=== PATIENT | male | born 1945 | race African-American/Black ===

== ENCOUNTER 2019-11-19 02:35 | Inpatient (IN) | payer OTHER ==
[~2019-11-19] VITALS: Ht 182.9 cm; Wt 99.8 kg
--- NOTE | 2019-11-19 02:36 | NUR ---
BIB EMS C/O SOB WITH AUDIBLE WHEEZING X1 HR RETAIL BRANCH MANAGER. HHN TX GIVEN BY EMS O2SAT 95-98% POST HHN TX PER EMS REPORT, PT TO BED 5, AWAKE, ALERT, SPEAKING IN FULL SENTENCES, PLACED ON MONITOR, AWIATING ER PROVIDER DENZEL
[2019-11-19] MEDS ORDERED: ALBUTEROL FS 2.5 MG/0.5 ML VIAL.NEB ONE (02:53)
[2019-11-19] MEDS ORDERED: IPRATROPIUM NEB FS 0.5 MG/2.5 ML AMPUL.NEB ONE (02:53)
[2019-11-19] MEDS ORDERED: DILTIAZEM HCL 50 MG IV ONE (03:00)
[2019-11-19] MEDS ORDERED: DILTIAZEM HCL 50 MG IV IV ONE (03:00)
[2019-11-19] MEDS ORDERED: IPRATROPIUM NEB FS 0.5 MG/2.5 ML AMPUL.NEB NEB ONE (03:00)
[2019-11-19] MEDS ORDERED: ALBUTEROL FS 2.5 MG/0.5 ML VIAL.NEB NEB ONE (03:00)
[2019-11-19 03:14] LABS: BASOPHILS # (AUTO) 0.1 /CMM (0.0-0.2); BASOPHILS % (AUTO) 1.1 % (0.0-2.0); EOSINOPHILS % (AUTO) 2.9 % (0.0-6.0); HEMATOCRIT 41 % (39-51); HEMOGLOBIN 13.4 g/dL (13.5-17.5); LYMPHOCYTES # (AUTO) 1.5 /CMM (0.8-4.8); LYMPHOCYTES % (AUTO) 16.6 % (20.0-44.0); MEAN CORPUSCULAR HGB CONC 32 g/dl (31.0-36.0); MEAN CORPUSCULAR VOLUME 96 fL (80-96); MONOCYTES # (AUTO) 0.7 /CMM (0.1-1.30); MONOCYTES % (AUTO) 7.8 % (2.0-12.0); NEUTROPHILS # (AUTO) 6.3 /CMM (1.8-8.9); NEUTROPHILS % (AUTO) 71.6 % (43.0-81.0); PLATELET COUNT (AUTO) 260 /CMM (150-450); WHITE BLOOD COUNT (AUTO) 8.8 K/uL (4.3-11.0)
[2019-11-19 03:25] LABS: ALANINE AMINOTRANSFERASE 58 U/L (12-78); ALBUMIN 2.9 g/dL (3.4-5.0); ALKALINE PHOSPHATASE 166 U/L (46-116); ASPARTATE AMINOTRANSFERASE 33 U/L (15-37); B-TYPE NATRIURETIC PEPTIDE 6309 PG/ML (0-125); BILIRUBIN,DIRECT 0.2 mg/dL (0.0-0.2); BILIRUBIN,TOTAL 0.4 mg/dL (0.2-1.0); CALCIUM, SERUM 9.8 mg/dL (8.5-10.1); CARBON DIOXIDE 29 mmol/L (21-32); CHLORIDE 100 mmol/L (98-107); CREATININE 1.7 mg/dL (0.6-1.3); GLUCOSE 143 mg/dL (74-106); POTASSIUM 4.3 mmol/L (3.5-5.1); SODIUM SERUM 138 mmol/L (136-145); TOTAL PROTEIN, SERUM 8.3 g/dL (6.4-8.2); UREA NITROGEN, BLOOD 24 mg/dL (7-18)
[2019-11-19 03:36] LABS: BAND % (MANUAL) 2 % (0.0-5.0); LYMPHOCYTES % (MANUAL) 22 % (16-48); MONOCYTES % (MANUAL) 8 % (0-11.0); NEUTROPHILS % (MANUAL) 68 (42-76)
[2019-11-19] MEDS ORDERED: IPRA0.2S49 NEB (04:59)
[2019-11-19] MEDS ORDERED: SITA50TA PO (04:59)
[2019-11-19] MEDS ORDERED: OMEP1PAC5 PO (04:59)
[2019-11-19] MEDS ORDERED: METO50TA16 PO (04:59)
[2019-11-19] MEDS ORDERED: LOSA50TA39 PO (04:59)
[2019-11-19] MEDS ORDERED: GABA600T12 PO (04:59)
[2019-11-19] MEDS ORDERED: METH5TAB6 PO (04:59)
[2019-11-19] MEDS ORDERED: RIVA10TA PO (04:59)
[2019-11-19] MEDS ORDERED: OMEG-167 PO (04:59)
--- NOTE | 2019-11-19 05:00 | NUR ---
DR. HACKETT ON THE PHONE WITH DR STORM
[2019-11-19] MEDS ORDERED: DIVA250T4 PO (05:08)
--- NOTE | 2019-11-19 05:45 | NUR ---
REPORT GIVEN TO SHAUN LANDEROS FOR ALAINA; PT WILL BE TRANSPORTED TO 3RD FLOOR
--- NOTE | 2019-11-19 05:55 | NUR ---
MOTOR ANALYST ADMITTING NOTES RECEIVED PT FROM ER VIA LIA. PT A/O X3 AND ABLE TO MAKE NEEDS KNOWN. PT ON 2L VIA [place]. NO COMPLAINTS OF PAIN AT THIS TIME. PT NOTED WITH RAC #20G PATENT AND INTACT AND SL. ORIENTED PT TO STAFF AND ROOM. SAFETY MEASURES IN PLACE WITH BED IN LOWEST LOCKED POSITION WITH SIDE RAILS UP X2. CALL LIGHT WITHIN REACH. WILL CONTINUE TO MONITOR.
--- NOTE | 2019-11-19 05:58 | NUR ---
TRANSPORTED TO 3RD FLOOR VIA ACLS PROTOCOL
[2019-11-19] MEDS ORDERED: IPRATROPIUM NEB FS 0.5 MG/2.5 ML AMPUL.NEB NEB PRN (06:30)
[2019-11-19] MEDS ORDERED: ALBUTEROL HALF STRENGTH 1.25 MG/3 ML VIAL.NEB NEB PRN (06:30)
[2019-11-19] MEDS ORDERED: ACETAMINOPHEN 325 MG TABLET PO PRN (06:30)
--- NOTE | 2019-11-19 07:00 | NUR ---
BOOKS SALESPERSON NOTES PT IN BED AWAKE AND ABLE TO MAKE NEEDS KNOWN. PT A/O X3 AND ABLE TO MAKE NEEDS KNOWN. PT ON 2L VIA NC. NO COMPLAINTS OF PAIN AT THIS TIME. PT NOTED WITH RAC #20G PATENT AND INTACT AND SL. SAFETY MEASURES IN PLACE WITH BED IN LOWEST LOCKED POSITION WITH SIDE RAILS UP X2. CALL LIGHT WITHIN REACH. WILL ENDORSE TO ONCOMING NURSE FOR ALAINA.
[2019-11-19 07:05] VITALS: BP 145/88
[2019-11-19 07:12] LABS: BASOPHILS % (AUTO) 0.5 % (0.0-2.0); EOSINOPHILS % (AUTO) 1.2 % (0.0-6.0); HEMATOCRIT 41 % (39-51); LYMPHOCYTES # (AUTO) 1.3 /CMM (0.8-4.8); LYMPHOCYTES % (AUTO) 15.5 % (20.0-44.0); MEAN CORPUSCULAR HGB CONC 32 g/dl (31.0-36.0); MEAN CORPUSCULAR VOLUME 98 fL (80-96); MONOCYTES # (AUTO) 0.7 /CMM (0.1-1.30); MONOCYTES % (AUTO) 8.7 % (2.0-12.0); NEUTROPHILS % (AUTO) 74.1 % (43.0-81.0); PLATELET COUNT (AUTO) 241 /CMM (150-450); RED BLOOD CELL COUNT(AUTO) 4.18 MIL/uL (4.5-6.0); WHITE BLOOD COUNT (AUTO) 8.1 K/uL (4.3-11.0)
[2019-11-19] MEDS ORDERED: METOPROLOL TARTRATE 50 MG TABLET PO SCH ×2 (07:30→09:00)
--- NOTE | 2019-11-19 07:45 | NUR ---
PRESSER FIRST OPENING NOTES RECEIVED PATIENT IN BED, AWAKE, A/O X3. PATIENT IS ON OXYGEN THERAPY AT 2 LPM VIA NASAL CANULA; BREATHING IS EVEN WITH SOB ON AND OFF (PER PATIENT). TELE MONITOR WITH A CURRENT READING OF UNCONTROLLED A-FIB WITH PVCs 108 BPM. PATIENT COMPLAINING OF MILD NECK PAIN STATING IT IS THE RESULT OF COVID-19 (HISTORY OF COVID-19). RAC IV ACCESS G # 20 PRESENT AND INTACT. SAFETY PRECAUTIONS IN PLACE; BED IN LOW POSITION AND LOCKED, RAILS UP X2, CALL LIGHT WITHIN REACH. WILL CONTINUE TO MONITOR PATIENT.
[2019-11-19 07:46] LABS: CALCIUM, SERUM 9.6 mg/dL (8.5-10.1); CARBON DIOXIDE 24 mmol/L (21-32); CHLORIDE 103 mmol/L (98-107); CREATININE 1.4 mg/dL (0.6-1.3); GLUCOSE 128 mg/dL (74-106); POTASSIUM 4.3 mmol/L (3.5-5.1); SODIUM SERUM 137 mmol/L (136-145); UREA NITROGEN, BLOOD 24 mg/dL (7-18)
[2019-11-19 08:00] VITALS: BP 163/100
[2019-11-19] MEDS: LEVOFLOXACIN 500 MG /D5W 100ML 500 MG in PREMIX 1 EA IV SCH (08:38)
[2019-11-19] MEDS: DIVALPROEX SODIUM 250 MG TABLET.DR PO SCH ×2 (09:33→16:50)
[2019-11-19] MEDS: DILTIAZEM HCL CD 240 MG PO SCH (09:34)
[2019-11-19] MEDS: RIVAROXABAN 10 MG TABLET PO SCH (09:35)
--- NOTE | 2019-11-19 09:41 | NUR ---
HAND TRIMMER NOTES PATIENT A/O X3, OXYGENATING AT 99% ON 2 LPM BUT LOOKS SORT OF BREATH. PER PATIENT HE IS BREATHING OK AND IS SLEEPY. WILL CONTINUE TO MONITOR PATIENT.
[2019-11-19] MEDS: METHIMAZOLE (5MG) 5 MG TABLET PO SCH (10:59)
[2019-11-19] MEDS: PANTOPRAZOLE 40 MG TABLET.DR PO SCH (10:59)
[2019-11-19] MEDS: LINAGLIPTIN 5 MG TABLET PO SCH (10:59)
[2019-11-19] MEDS: FUROSEMIDE 40 MG/4 ML VIAL IV SCH ×3 (10:59→17:44)
[2019-11-19] MEDS: GABAPENTIN 300 MG CAPSULE PO SCH ×3 (11:00→16:50)
[2019-11-19 12:00] VITALS: BP 165/70
[2019-11-19] MEDS: BLOOD SUGAR DIAGNOSTIC 1 EACH STRIP VI SCH ×3 (12:21→21:22)
[2019-11-19] MEDS: methylPREDNISolone SOD SUCC 40 MG/ML VIAL IV SCH ×2 (12:26→16:50)
[2019-11-19] MEDS ORDERED: DEXTROSE 50%-WATER 50 ML DISP.SYRIN IV PRN (12:30)
[2019-11-19 12:54] LABS: PHOSPHORUS 3.6 mg/dL (2.5-4.9)
[2019-11-19 12:59] LABS: IRON, SERUM 53 ug/dl (50-175); TOTAL IRON BINDING CAPACITY 188 ug/dl (250-450)
[2019-11-19 13:05] LABS: THYROID STIMULATING HORMONE 5.314 uIU/mL (0.358-3.74)
[2019-11-19 13:13] LABS: THYROID STIMULATING HORMONE 5.314 uIU/mL (0.358-3.74)
--- NOTE | 2019-11-19 15:18 | NUR ---
COURT COMMISSIONER NOTES DVT PUMPS APPLIED AND WORKING. PATIENT RESTING COMFORTABLY.
[2019-11-19 16:00] VITALS: BP 108/62
[2019-11-19] MEDS: METOPROLOL TARTRATE 50 MG TABLET PO SCH (16:47)
--- NOTE | 2019-11-19 16:47 | NUR ---
BELLING MACHINE OPERATOR NOTES 1700 METOPROLOL NON-ADMINISTERED. BP BORDERLINE 108/62 HR 61 PLUS HAS LASIX SCHEDULED AT 1700 WELL.
[2019-11-19] MEDS: INSULIN REGULAR, HUMAN 100 UNIT/ML 3 ML VIAL SQ PRN (17:22)
--- NOTE | 2019-11-19 18:29 | NUR ---
AREA INTELLIGENCE TECHNICIAN CLOSING NOTES PATIENT IN BED, AWAKE, A/O X3 AND WATCHING TV. PATIENT IS ON OXYGEN THERAPY AT 2 LPM VIA NASAL CANULA; BREATHING IS EVEN AT THIS TIME. TELE MONITOR WITH A CURRENT READING OF UNCONTROLLED A-FIB WITH PVCs 74 BPM. NO COMPLAINS OF PAIN AT THIS TIME. RAC IV ACCESS G # 20 PRESENT AND INTACT. ALL NEEDS ATTENDED TO THROUGHOUT THE DAY. SAFETY PRECAUTIONS IN PLACE; BED IN LOW POSITION AND LOCKED, RAILS UP X2, CALL LIGHT WITHIN REACH. WILL ENDORSE TO TRAIN CALLER NURSE.
--- NOTE | 2019-11-19 19:28 | NUR ---
MANAGER CLINICAL RESEARCH RECEIVE PT IN BED PATIENT A/O X 3, ASLEEP AND EASILY AWAKEN, STABLE NOT IN DISTRESS. WILL CONTINUE TO MONITOR
[2019-11-19 20:00] VITALS: BP 118/65
[2019-11-19] MEDS: LOSARTAN POTASSIUM 50 MG TABLET PO SCH (21:11)
[2019-11-19] MEDS: *INSULIN REGULAR(HUMULIN R)HUM 100 UNIT/ML VIAL SQ PRN (21:27)
[2019-11-20] VITALS: BP 130/76
--- NOTE | 2019-11-20 01:00 | NUR ---
PT CALM AND SLEEPING AT THIS TIME.
[2019-11-20 04:00] VITALS: BP 141/78
--- NOTE | 2019-11-20 05:49 | NUR ---
MS RN PT STABLE ON 3LPM VIA NC 02 SAT 95% NO SOB, AM CARE RENDERED, NO S/S OF DISTRESS, NEEDS ATTENDED AND ANTICIPATED, KEPT CLEAN, DRY AND COMFORTABLE. AM CARE RENDERED, NO C/O OF PAIN, ASSISTED REPOSITION EVERY 2 HOURS. SAFETY MEASURES AT ALL TIMES. WILL ENDORSE NEXT SHIFT POC. Addendum: 11/20/19 at 0556 by MESERET MILLER RN A-NIMA 88'S HR ON CARDIAC MONITORING
[2019-11-20] MEDS: BLOOD SUGAR DIAGNOSTIC 1 EACH STRIP VI SCH ×4 (06:09→22:24)
[2019-11-20] MEDS: INSULIN REGULAR, HUMAN 100 UNIT/ML 3 ML VIAL SQ PRN (06:12)
--- NOTE | 2019-11-20 06:28 | NUR ---
CUSTOMER SERVICE RECEPTIONIST 87 HR A-FIB CONTROLLED ON CARDIAC MONITORING.
[2019-11-20 06:44] LABS: BASOPHILS % (AUTO) 0.1 % (0.0-2.0); HEMATOCRIT 41 % (39-51); LYMPHOCYTES # (AUTO) 0.7 /CMM (0.8-4.8); LYMPHOCYTES % (AUTO) 7.4 % (20.0-44.0); MEAN CORPUSCULAR HGB CONC 32 g/dl (31.0-36.0); MEAN CORPUSCULAR VOLUME 98 fL (80-96); MONOCYTES # (AUTO) 0.2 /CMM (0.1-1.30); MONOCYTES % (AUTO) 2.3 % (2.0-12.0); NEUTROPHILS # (AUTO) 8.7 /CMM (1.8-8.9); NEUTROPHILS % (AUTO) 90.2 % (43.0-81.0); PLATELET COUNT (AUTO) 253 /CMM (150-450); RED BLOOD CELL COUNT(AUTO) 4.18 MIL/uL (4.5-6.0); WHITE BLOOD COUNT (AUTO) 9.7 K/uL (4.3-11.0)
--- NOTE | 2019-11-20 07:15 | NUR ---
rn notes patient received on 2L nasal cannula, no sob noted, patient denies pain at this time. a/o x3, R AC 20, bed at the lowest setting, call light within reach, side rails up x2. Tele monitor on, a-fib controlled.
[2019-11-20 07:18] LABS: ALANINE AMINOTRANSFERASE 46 U/L (12-78); ALBUMIN 2.6 g/dL (3.4-5.0); ALKALINE PHOSPHATASE 141 U/L (46-116); ASPARTATE AMINOTRANSFERASE 17 U/L (15-37); BILIRUBIN,TOTAL 0.5 mg/dL (0.2-1.0); CALCIUM, SERUM 9.8 mg/dL (8.5-10.1); CARBON DIOXIDE 27 mmol/L (21-32); CHLORIDE 99 mmol/L (98-107); CREATININE 1.8 mg/dL (0.6-1.3); GLUCOSE 222 mg/dL (74-106); MAGNESIUM 1.9 mg/dL (1.8-2.4); PHOSPHORUS 3.6 mg/dL (2.5-4.9); POTASSIUM 4.7 mmol/L (3.5-5.1); SODIUM SERUM 136 mmol/L (136-145); UREA NITROGEN, BLOOD 39 mg/dL (7-18)
[2019-11-20] MEDS: IPRATROPIUM NEB FS 0.5 MG/2.5 ML AMPUL.NEB NEB SCH ×2 (07:30→20:08)
[2019-11-20] MEDS: LEVOFLOXACIN 500 MG /D5W 100ML 500 MG in PREMIX 1 EA IV SCH (07:45)
[2019-11-20 08:04] VITALS: BP 147/88
[2019-11-20] MEDS: DIVALPROEX SODIUM 250 MG TABLET.DR PO SCH ×2 (08:14→16:28)
[2019-11-20] MEDS: PANTOPRAZOLE 40 MG TABLET.DR PO SCH (08:14)
[2019-11-20] MEDS: GABAPENTIN 300 MG CAPSULE PO SCH ×3 (08:14→16:29)
[2019-11-20] MEDS: METOPROLOL TARTRATE 50 MG TABLET PO SCH ×2 (08:15→16:29)
[2019-11-20] MEDS: LINAGLIPTIN 5 MG TABLET PO SCH (08:16)
[2019-11-20] MEDS: RIVAROXABAN 10 MG TABLET PO SCH (08:16)
[2019-11-20] MEDS: METHIMAZOLE (5MG) 5 MG TABLET PO SCH (08:19)
[2019-11-20] MEDS: DILTIAZEM HCL CD 240 MG PO SCH (08:20)
[2019-11-20] MEDS: methylPREDNISolone SOD SUCC 40 MG/ML VIAL IV SCH ×3 (08:26→16:31)
--- NOTE | 2019-11-20 08:26 | NUR ---
rn notes new solumedrol dose not given due to the old dose being given already
[2019-11-20 08:40] LABS: ABG BASE EXCESS 0.3 mmol/L; ABG OXYGEN SATURATION 97.1 % (92.0-98.5); ABG PCO2 41.8 mmHg (35.0-45.0); ABG PH 7.398 (7.350-7.450); ABG PO2 91.4 mmHg (75.0-100.0); AaDO2 58.9 mmHg; COHb 0.7 % (0.5-1.5); MetHb 0.1 % (0.0-1.5); O2Hb 96.3 % (94.0-97.0); SITE, ABG Right Radial; VENT MODE, BG 2L NC
[2019-11-20 12:00] VITALS: BP 143/67
[2019-11-20] MEDS: DIGOXIN 0.25 MG TABLET PO SCH (12:12)
[2019-11-20] MEDS: *INSULIN REGULAR(HUMULIN R)HUM 100 UNIT/ML VIAL SQ PRN ×3 (12:13→22:26)
[2019-11-20 16:00] VITALS: BP 128/74
--- NOTE | 2019-11-20 17:55 | NUR ---
rn notes patient remains on 2L nasal cannula, no sob noted, patient shows no s/s of pain at this time. R ac 20 present. BS checked and insulin coverage given. Plan is to dc patient somewhere other than [facility], since patient is refusing to go back there. bed at the lowest setting, call light within reach, side rails up x2.
--- NOTE | 2019-11-20 19:10 | NUR ---
MS RN NOTES RECEIVED PT IN BED AWAKE AND ABLE TO MAKE NEEDS KNOWN. PT A/O X3. RESPIRATIONS EVEN AND UNLABORED WITH NO S/S OF ACUTE DISTRESS OR SOB NOTED. PT ON 2L 02 VIA NC. NO COMPLAINTS OF PAIN AT THIS TIME. SAFETY MEASURES IN PLACE WITH BED IN LOWEST LOCKED POSITION WITH SIDE RAILS UP X2. CALL LIGHT WITHIN REACH. WILL CONTINUE TO MONITOR.
--- NOTE | 2019-11-20 20:00 | NUR ---
MS RN NOTES PT REFUSED PHOTOS AT THIS TIME. WILL CONTINUE TO MONITOR.
[2019-11-20 20:22] VITALS: BP 128/76
[2019-11-20] MEDS: LOSARTAN POTASSIUM 50 MG TABLET PO SCH (22:24)
[2019-11-21] MEDS: INSULIN REGULAR, HUMAN 100 UNIT/ML 3 ML VIAL SQ PRN ×3 (06:35→17:14)
[2019-11-21] MEDS: BLOOD SUGAR DIAGNOSTIC 1 EACH STRIP VI SCH ×4 (06:35→21:07)
[2019-11-21 06:47] LABS: BASOPHILS % (AUTO) 0.1 % (0.0-2.0); HEMATOCRIT 40 % (39-51); HEMOGLOBIN 12.9 g/dL (13.5-17.5); LYMPHOCYTES # (AUTO) 0.7 /CMM (0.8-4.8); LYMPHOCYTES % (AUTO) 4.5 % (20.0-44.0); MEAN CORPUSCULAR HGB CONC 32 g/dl (31.0-36.0); MEAN CORPUSCULAR VOLUME 96 fL (80-96); MONOCYTES # (AUTO) 0.5 /CMM (0.1-1.30); MONOCYTES % (AUTO) 3.2 % (2.0-12.0); NEUTROPHILS # (AUTO) 13.6 /CMM (1.8-8.9); NEUTROPHILS % (AUTO) 92.2 % (43.0-81.0); PLATELET COUNT (AUTO) 263 /CMM (150-450); RED BLOOD CELL COUNT(AUTO) 4.17 MIL/uL (4.5-6.0); WHITE BLOOD COUNT (AUTO) 14.8 K/uL (4.3-11.0)
[2019-11-21 06:53] LABS: CALCIUM, SERUM 9.5 mg/dL (8.5-10.1); CARBON DIOXIDE 25 mmol/L (21-32); CHLORIDE 99 mmol/L (98-107); CREATININE 2.1 mg/dL (0.6-1.3); GLUCOSE 320 mg/dL (74-106); POTASSIUM 4.6 mmol/L (3.5-5.1); SODIUM SERUM 135 mmol/L (136-145); UREA NITROGEN, BLOOD 50 mg/dL (7-18)
--- NOTE | 2019-11-21 07:17 | NUR ---
MS RN NOTES PT IN BED AWAKE AND ABLE TO MAKE NEEDS KNOWN. PT A/O X3. RESPIRATIONS EVEN AND UNLABORED WITH NO S/S OF ACUTE DISTRESS OR SOB NOTED AT THIS TIME. PT ON 2L 02 VIA NC. NO COMPLAINTS OF PAIN AT THIS TIME. SAFETY MEASURES IN PLACE WITH BED IN LOWEST LOCKED POSITION WITH SIDE RAILS UP X2. CALL LIGHT WITHIN REACH. WILL ENDORSE TO ONCOMING NURSE FOR ALAINA.
--- NOTE | 2019-11-21 07:21 | NUR ---
MS/RN Opening note Patient received from caustic cresylate shift superintendent. A/O X4, vital signs stable, no shortness of breath per patient. Saturation on room air 96%. Heplock to left AC flushing well with saline, no signs of infiltration. All questions and concerns addressed, reminded that rn case manager hospice is still looking for placement for patient. Safety measures in place, bed in low setting, call light within reach. Will continue to monitor and ensure safety.
[2019-11-21 08:00] VITALS: BP 136/87
[2019-11-21 08:02] VITALS: BP 136/87
[2019-11-21] MEDS: DIVALPROEX SODIUM 250 MG TABLET.DR PO SCH ×2 (08:23→17:10)
[2019-11-21] MEDS: LEVOFLOXACIN 500 MG /D5W 100ML 500 MG in PREMIX 1 EA IV SCH (08:23)
[2019-11-21] MEDS: LINAGLIPTIN 5 MG TABLET PO SCH (08:23)
[2019-11-21] MEDS: PANTOPRAZOLE 40 MG TABLET.DR PO SCH (08:23)
[2019-11-21] MEDS: GABAPENTIN 300 MG CAPSULE PO SCH ×3 (08:23→17:10)
[2019-11-21] MEDS: DILTIAZEM HCL CD 240 MG PO SCH (08:24)
[2019-11-21] MEDS: METOPROLOL TARTRATE 50 MG TABLET PO SCH ×2 (08:24→17:11)
[2019-11-21] MEDS: methylPREDNISolone SOD SUCC 40 MG/ML VIAL IV SCH (08:24)
[2019-11-21] MEDS: METHIMAZOLE (5MG) 5 MG TABLET PO SCH (08:25)
[2019-11-21] MEDS: RIVAROXABAN 10 MG TABLET PO SCH (08:37)
[2019-11-21] MEDS: IPRATROPIUM NEB FS 0.5 MG/2.5 ML AMPUL.NEB NEB SCH ×2 (08:57→20:15)
--- NOTE | 2019-11-21 09:04 | NUR ---
MS/RN S/B Dr Rodgers Seen by Dr Rodgers - 2D echo to be repeated, if within normal range, patietn to be discharged to SNF.
[2019-11-21] MEDS ORDERED: *INS REG SQ (09:07)
[2019-11-21] MEDS ORDERED: DILT240C88 PO (09:07)
[2019-11-21] MEDS ORDERED: Digoxin PO (09:07)
[2019-11-21] MEDS ORDERED: METO50TA16 PO (09:07)
[2019-11-21] MEDS ORDERED: PRED20TA PO (09:09)
[2019-11-21] MEDS ORDERED: LEVO750T21 PO (09:09)
[2019-11-21] MEDS ORDERED: INSULIN GLARGINE, 100 UNIT/ML CARTRIDGE SQ ONE (10:00)
--- NOTE | 2019-11-21 11:20 | NUR ---
WOUND CARE CONSULT: PT PRESENTS WITH MULTIPLE SCARS TO BILATERAL HEELS, SACRUM AND LEFT HIP, ALL PRESENT ON ADMISSION. PT IS ABLE TO TURN AND REPOSITION AND ACTUALLY GETS UP TO BATHROOM PER NURSING STAFF. RECOMMENDATIONS MADE FOR SKIN PROTECTION. DISCUSSED WITH NURSING STAFF. WILL SEE PRN. [place] IN AGREEMENT WITH PLAN OF CARE. Addendum: 11/21/19 at 1121 by RONNIE POTTER WNDNU Amended: Links added.
[2019-11-21] MEDS ORDERED: Z GUARD REMEDY 4 OZ OINT TP PRN (11:30)
--- NOTE | 2019-11-21 11:47 | NUR ---
MS/RN Blood sugar Blood sugar at 237, as per sliding scale, six units regualr insulin administered.
[2019-11-21] MEDS: DIGOXIN 0.25 MG TABLET PO SCH (13:00)
--- NOTE | 2019-11-21 14:59 | NUR ---
MS/road freight brake coupler Spoke to Virgie field nurse case manager regarding patient's discharge order and plan. Informed that [facility] as working to find suitable placement. Will update patient.
[2019-11-21 16:00] VITALS: BP 118/69
[2019-11-21 16:19] VITALS: BP 118/69
--- NOTE | 2019-11-21 18:18 | NUR ---
MS/RN End note Patient remains in stable condition. Per Dr Rodgers, patient is stable for discharge, order entered into computer. Awaiting director case management with [facility] to find suitable placement. Exit care prepared as discharge could happen this evening. Patient aware and in agreement. Will endorse to fast food shift supervisor.
[2019-11-21 20:00] VITALS: BP 127/65
--- NOTE | 2019-11-21 20:00 | NUR ---
MS/RN OPENING NOTES RECEIVED PATIENT IN BED, AWAKE, ALERT X3, ABLE TO VERBALIZED NEEDS, DISCUSSED PLAN OF CARE AND WAS INFORMED REGARDING THE PLACEMENT THAT CM IS WORKING ON, TO FOLLOW IN AM PATIENT HAVE VERBALIZED THAT HE DOES NOT WANT TO GO BACK TO [place], PATIENT IS WITH [facility], CM TO FOLLOW UP PLACEMENT FOR PATIENT. PATIENT REQUIRE ASSISTANCE FOR SAFETY, USES WALKER TO GO TO THE BATHROOM, ALSO USES URINAL, TO MONITOR, PATIENT REQUESTED SOME SNACKS BEFORE BED TIME, COOPERATIVE TO CARE, WILL MONITOR FOR ANY CHANGES. BED LOCKED, CALL LIGHTS WITHIN REACH, USES OXYGEN AT 3 LITER FOR BREATHING.
--- NOTE | 2019-11-21 20:05 | NUR ---
MS/RN NOTES PATIENT ALERT, ORIENTED, RESPIRATIONS EVEN AND UNLABORED, HAD BREATHING TREATMENT EARLIER DUE TO SOME WHEEZING, PATIENT WITH RIGHT AC GAUGE 20 HEPLOCK, BELONGINGS WITHIN REACH, BED LOCKED, CALL LIGHTS WITHIN REACH, PROVIDED FLUIDS AND SOME SNACKS. NO PAIN REPORTED AND OBSERVED, USES URINAL AND CALL LIGHTS WITHIN REACH.TO MONITOR.ON OXYGEN VIA NC AT 3LITER.
[2019-11-21 20:37] VITALS: BP 127/65
[2019-11-21] MEDS: LOSARTAN POTASSIUM 50 MG TABLET PO SCH (21:10)
--- NOTE | 2019-11-21 21:11 | NUR ---
BLOOD SUGAR CHECK AT 315, ON SOLUMEDROL AND HAD CRANBERRY JUICE and some snacks earlier reported.
[2019-11-21] MEDS: *INSULIN REGULAR(HUMULIN R)HUM 100 UNIT/ML VIAL SQ PRN (21:18)
--- NOTE | 2019-11-22 00:57 | NUR ---
MS/RN NOTES ROOM ROUND CHECK PATIENT AND MONITORED FOR SAFETY.
--- NOTE | 2019-11-22 05:20 | NUR ---
MS/RN NOTES PATIENT AWAKEN FROM SLEEP,ABLE TO VERBALIZE NEEDS, PROVIDED FLUIDS, ABLE TO USE URINAL.
--- NOTE | 2019-11-22 06:00 | NUR ---
BLOOD SUGAR CHECK AT 300, MONITOR
[2019-11-22] MEDS: INSULIN REGULAR, HUMAN 100 UNIT/ML 3 ML VIAL SQ PRN ×2 (06:14→12:02)
[2019-11-22] MEDS: BLOOD SUGAR DIAGNOSTIC 1 EACH STRIP VI SCH ×2 (06:17→11:54)
--- NOTE | 2019-11-22 06:19 | NUR ---
307-1 MS/RN NOTES PATIENT ABLE TO SLEEP DURING THE NIGHT, RESPIRATION EVEN AND UNLABORED, ON ROOM AIR. ATTENDED ALL NEEDS, MONITORED FOR ANY CHANGES. KEPT COMFORTABLE. BED LOCKED, CALL LIGHTS WITHIN REACH. IV HEPLOCK PATENT. WILL ENDORSE TO AM RN FOR ALAINA.
--- NOTE | 2019-11-22 07:28 | NUR ---
MS/RN Opening note Patient received from overnight babysitter. Sleeping soundly at this time, appears in no distress or discomfort. Safety measures in place, will conitnue to monitor and ensure safety.
[2019-11-22] MEDS: IPRATROPIUM NEB FS 0.5 MG/2.5 ML AMPUL.NEB NEB SCH ×2 (07:30→08:20)
[2019-11-22 07:47] VITALS: BP 135/81
[2019-11-22] MEDS: PANTOPRAZOLE 40 MG TABLET.DR PO SCH (08:46)
[2019-11-22] MEDS: GABAPENTIN 300 MG CAPSULE PO SCH ×2 (08:47→12:05)
[2019-11-22] MEDS: LINAGLIPTIN 5 MG TABLET PO SCH (08:47)
[2019-11-22] MEDS: DIVALPROEX SODIUM 250 MG TABLET.DR PO SCH (08:47)
[2019-11-22 08:48] VITALS: BP 135/81
[2019-11-22] MEDS: DILTIAZEM HCL CD 240 MG PO SCH (08:48)
[2019-11-22] MEDS: METOPROLOL TARTRATE 50 MG TABLET PO SCH (08:48)
[2019-11-22] MEDS: METHIMAZOLE (5MG) 5 MG TABLET PO SCH (08:50)
[2019-11-22] MEDS: LEVOFLOXACIN 500 MG /D5W 100ML 500 MG in PREMIX 1 EA IV SCH (08:51)
[2019-11-22] MEDS: RIVAROXABAN 10 MG TABLET PO SCH (08:58)
[2019-11-22] MEDS ORDERED: methylPREDNISolone SOD SUCC 40 MG/ML VIAL IV SCH (09:00)
--- NOTE | 2019-11-22 10:02 | NUR ---
MS/RN [facility] Call received from [facility] manager of case management, stated that patient will be [facility]. Will call back with flower picker time.
[2019-11-22] MEDS: DIGOXIN 0.25 MG TABLET PO SCH (12:05)
--- NOTE | 2019-11-22 12:15 | NUR ---
MS/pipe washer paperwork Exit care prepared, chart copied ready for discharge, spanish moss picker scheduled for 1p. Medication reconciliation completed by jhonatan Meyers changed to oral, prednisone ordered in place of solu-medrol. Order states to administered in reducing dosages. All personal belongings accounted for and signed off on belongings list. Heplock and name bands removed. Pictures of old scars taken and placed in chart at request of wound nurse. Patient has no open wounds. Awaiting transport.
--- NOTE | 2019-11-22 12:30 | NUR ---
MS/RN Report Report called to Marilyn LANDEROS at [facility].
--- NOTE | 2019-11-22 13:15 | NUR ---
MS/party plan sales unit sales leader Patient discharged in stable condition via ambulance to [facility]. All personal belongings with patient including dentures. Report given to Marilyn at facility, no room allocation given at this time.
[2019-11-23] MEDS ORDERED: LEVOFLOXACIN (500MG) 500 MG TABLET PO SCH (08:00)
== END 2019-11-22 13:30 | DRG 308 ==
LOC: ER 02:38 → TELE 05:24 → MED 11-20 12:59
PROVIDERS: ADMIT Internal Medicine; ATTEND Internal Medicine
DX: I48.20 Chronic atrial fibrillation, unspecified (principal); N17.0 Acute kidney failure with tubular necrosis; J44.1 Chronic obstructive pulmonary disease with (acute) exacerbation; I13.0 Hypertensive heart and chronic kidney disease with heart failure and stage 1 through stage 4 chronic kidney disease, or unspecified chronic kidney disease; J98.11 Atelectasis; I50.32 Chronic diastolic (congestive) heart failure; N18.9 Chronic kidney disease, unspecified; E11.22 Type 2 diabetes mellitus with diabetic chronic kidney disease; E11.65 Type 2 diabetes mellitus with hyperglycemia; E78.5 Hyperlipidemia, unspecified; Z79.01 Long term (current) use of anticoagulants; Z87.891 Personal history of nicotine dependence; Z79.4 Long term (current) use of insulin; E05.90 Thyrotoxicosis, unspecified without thyrotoxic crisis or storm; T38.0X5A Adverse effect of glucocorticoids and synthetic analogues, initial encounter; Y92.89 Other specified places as the place of occurrence of the external cause; E11.21 Type 2 diabetes mellitus with diabetic nephropathy
CPT/HCPCS: 36415; 36600; 71045-TC; 71250-TC; 80048-TC; 80053-TC; 80076-TC; 82803-TC; 82962-TC; 83540-TC; 83735-TC; 83880; 84100-TC; 84439-TC; 84443-TC; 84484-TC; 85025-TC; 87040-TC; 87081-TC; 93307-TC; 94799-TC; 97116-TC; 97530-TC; A4216; A6403; G0378; J1815; J1940; J1956; J2920; J3490; J7040